=== PATIENT | male | born 2005 | race Caucasian/White ===

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

== ENCOUNTER 2025-02-13 15:08 | Emergency (ER) | payer OTHER ==
[2025-02-13] MEDS ORDERED: AMOX-CLAV 875-1 EACH PO (15:22)
[2025-02-13] MEDS ORDERED: Amoxicillin/Clavulanate Pota 875 MG TAB PO ONE (15:25)
[2025-02-13] MEDS ORDERED: Acetaminophen/Hydrocodone 5 MG/325 MG TABLET PO ONE (15:25)
== END 2025-02-13 15:33 | disposition home or self-care (01) ==
LOC: ED 15:08
DX: K08.89 Other specified disorders of teeth and supporting structures (principal); F17.210 Nicotine dependence, cigarettes, uncomplicated; J45.909 Unspecified asthma, uncomplicated; Z79.899 Other long term (current) drug therapy

== ENCOUNTER 2025-03-17 01:22 | Emergency (ER) | payer OTHER ==
[~2025-03-17] VITALS: Ht 180.3 cm; Wt 95.3 kg
[~2025-03-17 01:22] MED LIST changes: +AMOX-CLAV 875-1 EACH PO
[2025-03-17] MEDS ORDERED: SODIUM CHLORIDE 0.9% 1,000 ML IV ONE (02:10)
[2025-03-17] MEDS ORDERED: Ondansetron Hydrochloride 4 MG/2 ML VIAL IV ONE (02:10)
[2025-03-17 02:31] LABS: BASO # 0.0 10*3/uL (0.0-0.1); BASO % 0.1 % (0.0-1.0); EOS # 0.0 10*3/uL (0.0-0.4); EOS % 0.0 % (1.0-4.0); MEAN CELL VOLUME 86.8 fl (80.0-94.0); MEAN CORPUSCULAR HGB 28.7 pg (27.0-31.0); MEAN PLATELET VOLUME 9.3 fl (9.6-12.3); MONO # 0.4 10*3/uL (0.1-1.0); MONO % 5.5 % (3.0-9.0); NEUT # 6.0 10*3/uL (2.3-7.9); NEUT % 84.0 % (47.0-73.0); NUCLEATED RED BLOOD CELL 0.0 % (0.0-0.0); NUCLEATED RED BLOOD CELL 0.0 10*3/uL (0.0-0.0); PLATELET COUNT AUTOMATED 186 10*3/uL (130-400); RED CELL DISTRI WIDTH 13.2 % (0-14.5)
[2025-03-17 02:52] LABS: BUN 11 mg/dl (9-23); SGPT/ALT 17 U/L (5-49)
[2025-03-17] MEDS ORDERED: Ondansetron4 MG PO (05:17)
[2025-03-17] MEDS ORDERED: REGLAN10 M1 PO (05:17)
[2025-03-17] MEDS ORDERED: Ondansetron Hydrochloride 4 MG TAB PO ONE (05:35)
== END 2025-03-17 05:49 | disposition home or self-care (01) ==
LOC: ED 01:22
PROVIDERS: Emergency Medicine
DX: R10.84 Generalized abdominal pain (principal); F12.10 Cannabis abuse, uncomplicated; K56.7 Ileus, unspecified; R11.2 Nausea with vomiting, unspecified; R19.7 Diarrhea, unspecified; Z79.899 Other long term (current) drug therapy